=== PATIENT | male | born 1960 | race Caucasian/White ===

== ENCOUNTER 2025-06-03 11:42 | Emergency (ER) | payer OTHER, SELFPAY ==
[2025-06-03] VITALS (9 sets, daily range): BP systolic 147–185; BP diastolic 79–87; PULSE 54–66; RESP 16–19; TEMP 36.6; O2SAT 98–99; BMI 25.8
--- NOTE | 2025-06-03 11:53 | DI.RAD.S_ITS ---
PROCEDURE: XR CHEST 1V INDICATIONS: Chest Pain TECHNIQUE: One view of the chest was acquired. COMPARISON: None. FINDINGS: Surgical changes and devices: None. Lungs and pleura: Lungs are clear. No pleural effusions or pneumothorax. Mediastinum: The cardiac contours are within normal limits. The aorta demonstrates calcification and tortuosity. Bones and chest wall: No suspicious bony lesions. Age-appropriate bony degenerative changes are seen. Overlying soft tissues appear unremarkable. IMPRESSION: Portable chest within normal limits for age. Dictated by: Boom Pereira M.D. on 06/03/2025 at 11:27 Approved by: Boom Pereira M.D. on 06/03/2025 at 11:28
--- NOTE | 2025-06-03 11:59 | EKG_ITS ---
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
[2025-06-03 12:21] LABS: Add Manual Diff / Slide Review NO; Hematocrit 43.0 % (41-53); Hemoglobin 15.0 g/dL (13.5-17.5); Lymphocytes Absolute Auto 700 /uL (1100-4500); Mean Corpuscular HGB Conc 34.8 % (30-36); Mean Corpuscular Hemoglobin 32.4 PG (26-34); Mean Corpuscular Volume 93.1 fL (80-100); Platelet Count 215 X10^3/uL (150-400)
[2025-06-03 12:25] LABS: INR 1.0 (0.9-1.3); Prothrombin Time 11.6 SECONDS (9.4-12.5)
[2025-06-03 12:28] LABS: PTT Partial Thromboplastin Tim 27 SECONDS (25.1-36.5)
[2025-06-03 12:31] LABS: Alanine Aminotransferase 26 IU/L (<50); Albumin 4.5 g/dL (3.5-5.0); Albumin Globulin Ratio 1.8 (1.0-2.8); Alkaline Phosphatase 78 U/L (38-126); Blood Urea Nitrogen 17 mg/dL (9-20); Calcium 9.0 mg/dL (8.4-10.2); Carbon Dioxide 26 mmol/L (22-32); Chloride 106 mmol/L (98-107); Creatine Kinase 62 U/L (55-170); Estimated Glomerular Filt Rate > 60 mL/min (>60); Globulin 2.5 g/dL (1.7-4.1); Glucose 125 mg/dL (70-99); HEMOLYSIS 47 (0-50); Lipase 172 U/L (23-300); Magnesium 2.2 mg/dL (1.6-2.3); Potassium 4.4 mmol/L (3.4-5.1); Sodium 140 mmol/L (137-145); Total Protein 7.0 g/dL (6.3-8.2)
[2025-06-03 12:42] LABS: NT-proBNP (BNP-Adult 18+) < 20 pg/mL (<125); Troponin I < 0.012 ng/mL (0.01-0.034)
[2025-06-03 14:40] LABS: Troponin I < 0.012 ng/mL (0.01-0.034)
--- NOTE | 2025-06-03 17:10 | DI.CT.S_ITS ---
PROCEDURE: CT ANGIO CHEST PE PROTOCOL INDICATIONS: pe study TECHNIQUE: After the administration of intravenous contrast, 2 mm thick sections acquired from the pulmonary apices to the posterior costophrenic angles. 3-dimensional maximum intensity projection (MIP) coronal and sagittal reformats were then acquired through the thorax. For radiation dose reduction, the following was used: automated exposure control, adjustment of mA and/or kV according to patient size. COMPARISON: None. FINDINGS: Image quality: Diagnostic. Pulmonary arteries: Pulmonary arteries are normal in size, and demonstrate no intraluminal filling defects to suggest central pulmonary embolism. Lower Neck: No enlarged lymph nodes. Thyroid: No thyroid nodules which require sonographic follow up, per consensus guidelines. Axillae: No enlarged lymph nodes. Chest Wall: Unremarkable. Bones: No aggressive appearing bony lesions. Lungs and Pleura: No pneumothorax or pleural effusions. Mild dependent atelectasis in posterior aspect of bilateral lower lobes are seen. No consolidation or suspicious nodules. Heart: Heart size is normal. No pericardial effusion. Thoracic Vessels: No aortic aneurysm. Mediastinum and Tabatha: No enlarged lymph nodes. Esophagus: No wall thickening. No hiatal hernia. Upper Abdomen: Visualized upper abdomen solid organs and bowel loops appear normal. IMPRESSION: 1. No pulmonary embolus. No thoracic aortic aneurysm or gross dissection. 2. No acute cardiopulmonary process. Dictated by: Nolan Perez M.D. on 06/03/2025 at 17:22 Approved by: Nolan Perez M.D. on 06/03/2025 at 17:34
--- NOTE | 2025-06-03 23:57 | ED_ITS ---
HPI - Chest Pain General Chief Complaint: Chest Pain Stated Complaint: Chest pain , going down left arm Time Seen by Provider: 06/03/25 12:38 Source: patient Mode of arrival: Family Vehicle Limitations: no limitations History of Present Illness HPI narrative: This 65 yo male presents with acute chest pain after he was on a plane flight from [place] here to [place]. Claimed the pain was sharp . Has bilateral leg swelliing as well. No history of clots. Related Data Allergies Allergy/AdvReac Type Severity Reaction Status Date / Time No Known Drug Allergies Allergy Verified 06/03/25 11:59 Review of Systems Review of Systems ROS Unobtainable: All systems reviewed & are unremarkable except as noted in HPI and below Constitutional Comments: Malaise secondary to chest pain and leg swelling after plane flight. ENT Ears, Nose, Mouth, and Throat: Reports system reviewed and no additional complaints, except as documented Cardiovascular Comments: chest tightness after plane flight in left chest and down left arm, Respiratory Comments: Slight shortness of breath Gastrointestinal Comments: No epigastric pain Musculoskeletal Comments: Bilateral leg swelling after plane flight,. No calf tenderness Exam Initial Vital Signs Initial Vital Signs: Vital Signs Temperature 97.9 F 06/03/25 11:53 Pulse Rate 55 L 06/03/25 11:53 Respiratory Rate 16 06/03/25 11:53 Blood Pressure 147/87 H 06/03/25 11:53 Pulse Oximetry 98 06/03/25 11:53 Oxygen Delivery Method Room Air 06/03/25 11:53 Const General: cooperative and healthy appearing [facility] Head: normal to inspection Neck Neck: normal visual inspection and full ROM Chest Other: left chest tightness and pain down left arm Resp Other: clear BS GI Other: No epigastric tenderness Neuro General: patient alert and patient awake Extrem Other: 1+edema bilaterally, no calf tenderness Course Course Course Narrative: This 65 yo MALE presents with left tight chest pain after a long plane flight and bilateral leg edema. CArdiac work-up was negative with two sets of negative troponins. Hoever, upon learning of plane flight explained need to ruloe out a PE so did a CT pulmonary ang this was negative for PE or acute infiltrate. It was decided that the patient may have had some anxiety, If his leg swelling does not go away and he has pain he should get a doppler US of his legs and to be complete he can get a nuclear stress test when he goes home to [place] through his regular provider,. Orders Ordered: ED Orders 06/03/25 17:10 CT angio chest PE protocol Stat Discontinued Medications Aspirin (Aspirin 81 Mg Chew Tab) 324 mg PO NOW ONE Stop: 06/03/25 11:54 Vital Signs Vital signs: Vital Signs - 8 hr 06/03/25 16:30 06/03/25 16:30 06/03/25 17:00 Pulse Rate 58 L 54 L Blood Pressure 167/81 H Pulse Oximetry 99 99 06/03/25 17:00 Pulse Rate Blood Pressure 166/79 H Pulse Oximetry MDM - Chest Pain Lab Data 06/03/25 12:06 06/03/25 12:06 Labs: Lab Results 06/03/25 06/03/25 Range/Units 12:06 14:07 WBC 5.1 (4.5-11.0) X10^3/uL RBC 4.62 (4.5-5.9) X10^6/uL Hgb 15.0 (13.5-17.5) g/dL Hct 43.0 (41-53) % MCV 93.1 (80-100) fL MCH 32.4 (26-34) PG MCHC 34.8 (30-36) % RDW 12.5 (11.6-14.8) % Plt Count 215 (150-400) X10^3/uL Neut % (Auto) 74.3 (50-75) % Lymph % (Auto) 14.5 L (25-40) % [place] % (Auto) 8.7 (3-14) % Eos % (Auto) 2.0 (2-4) % Baso % (Auto) 0.5 (0-2) % Neut # (Auto) 3800 (5834-8924) /uL Lymph # (Auto) 700 L (9351-1195) /uL [place] # (Auto) 400 (0-900) /uL Eos # (Auto) 100 (0-450) /uL Baso # (Auto) 0 (0-100) /uL PT 11.6 (9.4-12.5) SECONDS INR 1.0 (0.9-1.3) APTT 27 (25.1-36.5) SECONDS Sodium 140 (137-145) mmol/L Potassium 4.4 (3.4-5.1) mmol/L Chloride 106 (98-107) mmol/L Carbon Dioxide 26 (22-32) mmol/L BUN 17 (9-20) mg/dL Creatinine 0.91 (0.66-1.25) mg/dL Estimated GFR > 60 (>60) mL/min BUN/Creatinine Ratio 18.7 (6-22) Glucose 125 H (70-99) mg/dL Calcium 9.0 (8.4-10.2) mg/dL Magnesium 2.2 (1.6-2.3) mg/dL Total Bilirubin 0.5 (0.2-1.3) mg/dL AST 32 (17-59) IU/L ALT 26 (<50) IU/L Alkaline Phosphatase 78 (38-126) U/L Total Creatine Kinase 62 (55-170) U/L Troponin I < 0.012 < 0.012 (0.01-0.034) ng/mL NT-Pro-B Natriuret Pep < 20 (<125) pg/mL Total Protein 7.0 (6.3-8.2) g/dL Albumin 4.5 (3.5-5.0) g/dL Globulin 2.5 (1.7-4.1) g/dL Albumin/Globulin Ratio 1.8 (1.0-2.8) Lipase 172 (23-300) U/L Discharge Plan Departure Patient Disposition: Home Clinical Impression: Chest pain Instructions: DI for Chest Pain Activity Restrictions/Additional Instructions: Elevate legs . if continued swelling or increased pain in legs get doppler US of legs to rule out clot but at this time no clot in chest. Might get stress test in future through cardiology to rule out angina Referrals: [facility] [Other] Clinical Impression: Chest pain Stand Alone Forms: Patient Portal/API
== END 2025-06-03 18:09 | disposition home or self-care (01) ==
PROVIDERS: Emergency Provider Emergency Medicine
DX: R07.9 Chest pain, unspecified (principal); R60.0 Localized edema
CPT/HCPCS: 36415; 71045; 71275; 80053; 82550; 83690; 83735; 83880; 84484; 85025; 85610; 85730; 93005; 99283; 99284; Q9967